=== PATIENT | female | born 1990 | race American Indian/Alaskan Native ===

== ENCOUNTER 2018-06-11 12:08 | Emergency (ER) | payer OTHER ==
[2018-06-11] MEDS ORDERED: BICILLIN L-A IM ONE (16:52)
[2018-06-11] MEDS ORDERED: TORADOL IM ONE (17:07)
--- NOTE | 2018-06-11 17:13 | Emergency Department Report ---
ED General Adult HPI - General Chief complaint: Sore Throat Stated complaint: SWOLLEN GLANDS/WEAKNESS Time Seen by Provider: 06/11/18 16:21 Source: patient Mode of arrival: Ambulatory Limitations: No Limitations - History of Present Illness Initial comments: She presents to emergency for the chief complaint of a sore throat and sinus congestion for the last 2 days. Patient denies any sick contacts. Patient also complains of body aches as well. -: Gradual Severity scale (0 -10): 7 Quality: aching Consistency: constant Improves with: none Worsens with: none Associated Symptoms: denies other symptoms Treatments Prior to Arrival: none - Related Data Previous Rx's Medication Instructions Recorded Last Taken Type ALBUTEROL Inhaler (OR & NICU) 2 puff IH Q4HR PRN #1 inhalation 06/11/18 Unknown Rx [ProAir HFA Inhaler] Azithromycin [Zithromax Z-IRLANDA] 250 mg PO DAILY #6 tablet 06/11/18 Unknown Rx Benzonatate [Tessalon Perles] 100 mg PO Q8HR PRN #20 capsule 06/11/18 Unknown Rx Ibuprofen [Motrin] 800 mg PO Q8HR PRN #30 tablet 06/11/18 Unknown Rx guaiFENesin/CODEINE [Robitussin AC] 5 ml PO Q12HR PRN #180 oral.liqd 06/11/18 Unknown Rx predniSONE [Deltasone] 20 mg PO DAILY #15 tablet 06/11/18 Unknown Rx traMADol [Ultram] 50 mg PO Q6HR PRN #24 tablet 06/11/18 Unknown Rx Allergies Allergy/AdvReac Type Severity Reaction Status Date / Time No Known Allergies Allergy Unverified 06/11/18 13:16 ED Review of Systems ROS: Stated complaint: SWOLLEN GLANDS/WEAKNESS Other details as noted in HPI Comment: All other systems reviewed and negative Constitutional: denies: chills, fever Eyes: denies: eye pain, eye discharge, vision change ENT: throat pain. denies: ear pain Respiratory: cough. denies: shortness of breath, wheezing Cardiovascular: denies: chest pain, palpitations Endocrine: no symptoms reported Gastrointestinal: denies: abdominal pain, nausea, diarrhea Genitourinary: denies: urgency, dysuria, discharge Musculoskeletal: denies: back pain, joint swelling, arthralgia Skin: denies: rash, lesions Neurological: denies: headache, weakness, paresthesias Psychiatric: denies: anxiety, depression Hematological/Lymphatic: denies: easy bleeding, easy bruising ED Past Medical Hx - Past Medical History Previous Medical History?: No - Surgical History Past Surgical History?: No - Social History Smoking Status: Never Smoker Substance Use Type: Alcohol - Medications Home Medications: Home Medications Medication Instructions Recorded Confirmed Last Taken Type ALBUTEROL Inhaler (OR & NICU) 2 puff IH Q4HR PRN #1 inhalation 06/11/18 Unknown Rx [ProAir HFA Inhaler] Azithromycin [Zithromax Z-IRLANDA] 250 mg PO DAILY #6 tablet 06/11/18 Unknown Rx Benzonatate [Tessalon Perles] 100 mg PO Q8HR PRN #20 capsule 06/11/18 Unknown Rx Ibuprofen [Motrin] 800 mg PO Q8HR PRN #30 tablet 06/11/18 Unknown Rx guaiFENesin/CODEINE [Robitussin AC] 5 ml PO Q12HR PRN #180 oral.liqd 06/11/18 Unknown Rx predniSONE [Deltasone] 20 mg PO DAILY #15 tablet 06/11/18 Unknown Rx traMADol [Ultram] 50 mg PO Q6HR PRN #24 tablet 06/11/18 Unknown Rx ED Physical Exam - General Limitations: No Limitations General appearance: alert, in no apparent distress - Head Head exam: Present: atraumatic, normocephalic - Eye Eye exam: Present: normal appearance, PERRL, EOMI - ENT ENT exam: Present: mucous membranes moist, other ([place] TONSILS ARE INFLAMED with erythema and exudate) - Neck Neck exam: Present: normal inspection - Respiratory Respiratory exam: Present: normal lung sounds bilaterally, rales. Absent: respiratory distress - Cardiovascular Cardiovascular Exam: Present: regular rate, normal rhythm. Absent: systolic murmur, diastolic murmur, rubs, gallop - GI/Abdominal GI/Abdominal exam: Present: soft, normal bowel sounds - Extremities Exam Extremities exam: Present: normal inspection - Back Exam Back exam: Present: normal inspection - Neurological Exam Neurological exam: Present: alert, oriented X3, CN II-XII intact. Absent: motor sensory deficit - Psychiatric Psychiatric exam: Present: normal affect, normal mood - Skin Skin exam: Present: warm, dry, intact, normal color. Absent: rash ED Course Vital Signs 06/11/18 13:16 Temperature 100.2 F H Pulse Rate 114 H Respiratory 18 Rate Blood Pressure 121/71 O2 Sat by Pulse 99 Oximetry ED Medical Decision Making - Medical Decision Making Discussed plan of care with patient and the patient requested a shot Critical care attestation.: If time is entered above; I have spent that time in minutes in the direct care of this critically ill patient, excluding procedure time. ED Disposition Clinical Impression: Pharyngitis, Acute bronchitis Disposition: TO HOME OR SELFCARE Is pt being admited?: No Does the pt Need Aspirin: No Condition: Stable Instructions: Pharyngitis (ED), Acute Bronchitis (ED) Additional Instructions: return if worse Referrals: DEVON KHANNA MD [Primary Care Provider] - 3-5 Days [facility] [Provider Group] - 3-5 Days [facility] [Provider Group] - 3-5 Days Time of Disposition: 17:12
[2018-06-11 17:40] VITALS: BP 124/68
== END 2018-06-11 17:38 | disposition home or self-care (01) ==
LOC: ED 12:08
DX: J20.9 Acute bronchitis, unspecified (principal); J02.9 Acute pharyngitis, unspecified
CPT/HCPCS: 96372; 99282; J0561; J1885

== ENCOUNTER 2019-12-03 14:18 | Emergency (ER) | payer SELFPAY ==
--- NOTE | 2019-12-03 14:52 | Event Note ---
ED Screening Note ED Screening Note: states she has been having generalized body aches, chills, sweats, cough no v/d no SOB rash to the left flank that began last, possibly shingles tachycardia in medical screening oxygen is normal This initial assessment/diagnostic orders/clinical plan/treatment(s) is/are subject to change based on patients health status, clinical progression and re- assessment by fellow clinical providers in the ED. Further treatment and workup at subsequent clinical providers discretion. Patient/guardian urged not to elope from the ED as their condition may be serious if not clinically assessed and managed. Initial orders include: labs, CXR
[2019-12-03 15:44] LABS: Basophils % (Auto) 0.2 % (0.0-1.8); Eosinophils % (Auto) 0.3 % (0.0-4.3); Hematocrit 28.7 % (30.3-42.9); Lymphocytes # (Auto) 0.8 K/mm3 (1.2-5.4); Lymphocytes % (Auto) 13.7 % (13.4-35.0); Mean Corpuscular HGB Conc 31 % (30-34); Mean Corpuscular Volume 71 fl (79-97); Monocytes # (Auto) 0.2 K/mm3 (0.0-0.8); Monocytes % (Auto) 3.9 % (0.0-7.3); Platelet Count 247 K/mm3 (140-440); Red Blood Count 4.03 M/mm3 (3.65-5.03); Red Cell Distribution Width 16.8 % (13.2-15.2)
[2019-12-03 16:01] LABS: Alanine Aminotransferase 6 units/L (7-56); Albumin 3.3 g/dL (3.9-5); Blood Urea Nitrogen 5 mg/dL (7-17); Calcium 9.3 mg/dL (8.4-10.2); Hemolysis Index 0
[2019-12-03 16:04] LABS: BUN/Creatinine Ratio 10
--- NOTE | 2019-12-03 16:24 | XRay Report ---
CHEST 1 VIEW INDICATION / CLINICAL INFORMATION: cough, chills, tachycardia. COMPARISON: None available. FINDINGS: SUPPORT DEVICES: None. HEART / MEDIASTINUM: No significant abnormality. LUNGS / PLEURA: No significant pulmonary or pleural abnormality. No pneumothorax. ADDITIONAL FINDINGS: No significant additional findings. IMPRESSION: No acute pulmonary or pleural abnormality Signer Name: Rodriguez Davalos MD FACR Signed: 12/03/2019 4:20 PM Workstation Name: [id number]
[2019-12-03] MEDS ORDERED: ACETAMINOPHEN 325 MG TAB PO ONE (17:29)
--- NOTE | 2019-12-03 17:57 | Emergency Department Report ---
ED General Adult HPI - General Chief complaint: Upper Respiratory Infection Stated complaint: SORE THROAT/WEAKNESS/CP PUI?: Yes Time Seen by Provider: 12/03/19 14:47 Source: patient Mode of arrival: Ambulatory Limitations: No Limitations - History of Present Illness Initial comments: This is a 29-year-old female who presents the ED complaining of body aches and sore throat times couple days. Patient states that she took some medicine and her mother gave her yesterday for body aches and today she noticed a rash on the side of her stomach. Patient denies any itching or pain of the rash. Patient states she is unsure if she has been around anyone that is been sick. Patient does note that she lives alone and she has been at home. Severity scale (0 -10): 6 - Related Data Previous Rx's Medication Instructions Recorded Last Taken Type Albuterol Mdi (or & Nicu Only) 2 puff IH Q4HR PRN #1 inhalation 06/11/18 Unknown Rx [ProAir HFA Inhaler] Azithromycin [Zithromax Z-IRLANDA] 250 mg PO DAILY #6 tablet 06/11/18 Unknown Rx Benzonatate [Tessalon Perles] 100 mg PO Q8HR PRN #20 capsule 06/11/18 Unknown Rx Ibuprofen [Motrin] 800 mg PO Q8HR PRN #30 tablet 06/11/18 Unknown Rx guaiFENesin/CODEINE [Robitussin AC] 5 ml PO Q12HR PRN #180 oral.liqd 06/11/18 Unknown Rx predniSONE [Deltasone] 20 mg PO DAILY #15 tablet 06/11/18 Unknown Rx traMADoL [Ultram] 50 mg PO Q6HR PRN #24 tablet 06/11/18 Unknown Rx Amoxicillin [Trimox CAP] 500 mg PO Q8H #21 capsule 12/03/19 Unknown Rx Nystas/Diphen/Xyl Visc/Mylanta 15 ml MM Q6H PRN #120 ml 12/03/19 Unknown Rx [Magic Mouthwash] Allergies Allergy/AdvReac Type Severity Reaction Status Date / Time No Known Allergies Allergy Unverified 06/11/18 13:16 ED Review of Systems ROS: Stated complaint: SORE THROAT/WEAKNESS/CP Other details as noted in HPI Comment: All other systems reviewed and negative ED Past Medical Hx - Past Medical History Previous Medical History?: No - Surgical History Past Surgical History?: No - Social History Smoking Status: Never Smoker Substance Use Type: Alcohol - Medications Home Medications: Home Medications Medication Instructions Recorded Confirmed Last Taken Type Albuterol Mdi (or & Nicu Only) 2 puff IH Q4HR PRN #1 inhalation 06/11/18 Unknown Rx [ProAir HFA Inhaler] Azithromycin [Zithromax Z-IRLANDA] 250 mg PO DAILY #6 tablet 06/11/18 Unknown Rx Benzonatate [Tessalon Perles] 100 mg PO Q8HR PRN #20 capsule 06/11/18 Unknown Rx Ibuprofen [Motrin] 800 mg PO Q8HR PRN #30 tablet 06/11/18 Unknown Rx guaiFENesin/CODEINE [Robitussin AC] 5 ml PO Q12HR PRN #180 oral.liqd 06/11/18 Unknown Rx predniSONE [Deltasone] 20 mg PO DAILY #15 tablet 06/11/18 Unknown Rx traMADoL [Ultram] 50 mg PO Q6HR PRN #24 tablet 06/11/18 Unknown Rx Amoxicillin [Trimox CAP] 500 mg PO Q8H #21 capsule 12/03/19 Unknown Rx Nystas/Diphen/Xyl Visc/Mylanta 15 ml MM Q6H PRN #120 ml 12/03/19 Unknown Rx [Magic Mouthwash] ED Physical Exam - General Limitations: No Limitations General appearance: alert, in no apparent distress - Head Head exam: Present: atraumatic, normocephalic - Eye Eye exam: Present: normal appearance - ENT ENT exam: Present: mucous membranes moist - Neck Neck exam: Present: normal inspection - Respiratory Respiratory exam: Present: normal lung sounds bilaterally. Absent: respiratory distress - Cardiovascular Cardiovascular Exam: Present: regular rate, normal rhythm. Absent: systolic murmur, diastolic murmur, rubs, gallop - GI/Abdominal GI/Abdominal exam: Present: soft, normal bowel sounds - Extremities Exam Extremities exam: Present: normal inspection - Back Exam Back exam: Present: normal inspection - Neurological Exam Neurological exam: Present: alert, oriented X3 - Psychiatric Psychiatric exam: Present: normal affect, normal mood - Skin Skin exam: Present: warm, dry, intact, normal color. Absent: rash ED Course Vital Signs 12/03/19 12/03/19 12/03/19 14:22 14:51 17:02 Temperature 99.6 F Pulse Rate 125 H 116 H 100 H Respiratory 16 16 Rate Blood Pressure 126/79 Blood Pressure 121/76 [Left] O2 Sat by Pulse 100 100 Oximetry ED Medical Decision Making - Lab Data Result diagrams: 12/03/19 15:23 12/03/19 15:23 Laboratory Last Values WBC 5.7 K/mm3 (4.5-11.0) 12/03/19 15:23 RBC 4.03 M/mm3 (3.65-5.03) 12/03/19 15:23 Hgb 9.0 gm/dl (10.1-14.3) L 12/03/19 15:23 Hct 28.7 % (30.3-42.9) L 12/03/19 15:23 MCV 71 fl (79-97) L 12/03/19 15:23 MCH 22 pg (28-32) L 12/03/19 15:23 MCHC 31 % (30-34) 12/03/19 15:23 RDW 16.8 % (13.2-15.2) H 12/03/19 15:23 Plt Count 247 K/mm3 (140-440) 12/03/19 15:23 Lymph % (Auto) 13.7 % (13.4-35.0) 12/03/19 15:23 [place] % (Auto) 3.9 % (0.0-7.3) 12/03/19 15:23 Eos % (Auto) 0.3 % (0.0-4.3) 12/03/19 15:23 Baso % (Auto) 0.2 % (0.0-1.8) 12/03/19 15:23 Lymph # 0.8 K/mm3 (1.2-5.4) L 12/03/19 15:23 [place] # 0.2 K/mm3 (0.0-0.8) 12/03/19 15:23 Eos # 0.0 K/mm3 (0.0-0.4) 12/03/19 15:23 Baso # 0.0 K/mm3 (0.0-0.1) 12/03/19 15:23 Seg Neutrophils % 81.9 % (40.0-70.0) H 12/03/19 15:23 Seg Neutrophils # 4.6 K/mm3 (1.8-7.7) 12/03/19 15:23 Sodium 134 mmol/L (137-145) L 12/03/19 15:23 Potassium 4.0 mmol/L (3.6-5.0) 12/03/19 15:23 Chloride 99.6 mmol/L (98-107) 12/03/19 15:23 Carbon Dioxide 26 mmol/L (22-30) 12/03/19 15:23 Anion Gap 12 mmol/L 12/03/19 15:23 BUN 5 mg/dL (7-17) L 12/03/19 15:23 Creatinine 0.5 mg/dL (0.7-1.2) L 12/03/19 15:23 Estimated GFR > 60 ml/min 12/03/19 15:23 BUN/Creatinine Ratio 10 % 12/03/19 15:23 Glucose 99 mg/dL (65-100) 12/03/19 15:23 Calcium 9.3 mg/dL (8.4-10.2) 12/03/19 15:23 Magnesium 2.10 mg/dL (1.7-2.3) 12/03/19 15:23 Total Bilirubin 0.40 mg/dL (0.1-1.2) 12/03/19 15:23 AST 20 units/L (5-40) 12/03/19 15:23 ALT 6 units/L (7-56) L 12/03/19 15:23 Alkaline Phosphatase 75 units/L (35-129) 12/03/19 15:23 Total Creatine Kinase 25 units/L (30-135) L 12/03/19 15:23 Total Protein 10.2 g/dL (6.3-8.2) H 12/03/19 15:23 Albumin 3.3 g/dL (3.9-5) L 12/03/19 15:23 Albumin/Globulin Ratio 0.5 % 12/03/19 15:23 TSH 1.130 mlU/mL (0.270-4.200) 12/03/19 15:23 HCG, Qual Negative (Negative) 12/03/19 15:23 - Radiology Data Fluoro Time In Minutes: CHEST 1 VIEW INDICATION / CLINICAL INFORMATION: cough, chills, tachycardia. COMPARISON: None available. FINDINGS: SUPPORT DEVICES: None. HEART / MEDIASTINUM: No significant abnormality. LUNGS / PLEURA: No significant pulmonary or pleural abnormality. No pneumothorax. ADDITIONAL FINDINGS: No significant additional findings. IMPRESSION: No acute pulmonary or pleural abnormality Signer Name: Rodriguez Davalos MD FACR Signed: 12/03/2019 4:20 PM Workstation Name: [id number] Transcribed By: MS Dictated By: Rodriguez Davalos MD Electronically Authenticated By: Rodriguez Davalos MD Signed Date/Time: 12/03/19 1620 - Medical Decision Making 29-year-old female presents with upper respiratory symptoms no fever during the ED stay. Pulse reduced Chest x-ray shows no acute findings All labs within normal limits Discussed with patient symptomatic relief with [id number] medications. Discussed with patient COVID-19 testing is appropriate and mandatory and should be done as soon as possible. Discussed with patient for 14-day quarantine if test is positive. Discussed worsening of symptoms patient should return to ED immediately. Patient oxygen saturation stayed at 100% on room air during exertion and after exertion. Discussed continue Tylenol as needed for fever and pain. Discussed increase fluids and diet intake. Discussed rest much needed. Discussed daily vitamin C for immune booster. Discussed follow-up with [facility] physician in 3-5 days. Patient verbally states she understands and will comply the following instructions and follow-up Vital signs stable. Patient is in no acute distress Critical care attestation.: If time is entered above; I have spent that time in minutes in the direct care of this critically ill patient, excluding procedure time. ED Disposition Clinical Impression: Sore throat, Myalgia Disposition: - TO HOME OR SELFCARE Is pt being admited?: No Does the pt Need Aspirin: No Condition: Stable Instructions: Tonsillitis (ED), Strep Throat (ED), COVID-19 Additional Instructions: Make sure to follow up with the primary care physician as discussed. Take all your medications as you've been prescribed. If you have any worsening symptoms or develop new symptoms please return to ED immediately. Referrals: PRIMARY CARE, [Primary Care Provider] - 3-[address] [facility] [Outside] - 3-5 Days [facility] [Outside] - 3-5 Days Forms: Work/School Release Form(ED) Time of Disposition: 18:08
[2019-12-03 18:49] VITALS: BP 120/74
== END 2019-12-03 18:48 | disposition home or self-care (01) ==
LOC: ED 14:18
DX: J02.9 Acute pharyngitis, unspecified (principal); M79.10 Myalgia, unspecified site; Z79.1 Long term (current) use of non-steroidal anti-inflammatories (NSAID); Z79.2 Long term (current) use of antibiotics; Z79.899 Other long term (current) drug therapy
CPT/HCPCS: 36415; 71045; 80053; 82550; 83735; 84443; 84703; 85025